=== PATIENT | male | born 1995 | race Caucasian/White ===

== ENCOUNTER 2017-11-26 10:45 | Emergency (ER) | payer BC ==
[2017-11-26 11:13] VITALS: BP 119/70; PULSE 82; RESP 18; TEMP 99.2
--- NOTE | 2017-11-26 12:30 | ED ---
URI HPI - General Chief Complaint: Upper Respiratory Infection Stated Complaint: sinus, sore throat Time Seen by Provider: 11/26/17 12:21 Source: patient, RN notes reviewed Mode of arrival: ambulatory Limitations: no limitations - History of Present Illness Initial Comments: This is a 22-year-old male who presents to the emergency department with chief complaint of cough and sinus congestion. Patient states that he was seen in an urgent care on Saturday. He states he was diagnosed with a sinus infection. He states that he has taken 5 doses of amoxicillin since that time. He states that he feels like symptoms are worsening. He reports a worsening cough. He states that he does have a sore throat and has not been eating as much because of this. He denies any fevers or chills, abdominal pain, nausea or vomiting. Denies any difficulty breathing or chest pain. - Related Data Home Medications Medication Instructions Recorded Confirmed Amoxicillin/Potassium Clav 1 tab PO Q12H 11/26/17 11/26/17 [Augmentin 875-125 Tablet] Ferrous Sulfate [Feosol] 325 mg PO DAILY 11/26/17 11/26/17 Multivitamins, Thera [Multivitamin 1 tab PO DAILY 11/26/17 11/26/17 (formulary)] Allergies Allergy/AdvReac Type Severity Reaction Status Date / Time No Known Allergies Allergy Verified 11/26/17 12:13 Review of Systems ROS Statement: Those systems with pertinent positive or pertinent negative responses have been documented in the HPI. ROS Other: All systems not noted in ROS Statement are negative. Past Medical History Past Medical History: No Reported History History of Any Multi-Drug Resistant Organisms: None Reported Additional Past Surgical History / Comment(s): rgith wrist surgery Past Psychological History: No Psychological Hx Reported Smoking Status: Never smoker Past Alcohol Use History: None Reported Past Drug Use History: None Reported General Exam - General Exam Comments Initial Comments: General: Awake and alert, well-developed; in no apparent distress. HEENT: Head atraumatic, normocephalic. Pupils are equal, round and reactive to light. Extraocular movements intact. Oropharynx moist with mild erythema. No bilateral tonsillar enlargement or exudates. Small vesicular lesions posterior soft palate. Neck: Supple. Normal ROM. No tender lymphadenopathy. Cardiovascular: Regular rate and rhythm. No murmurs, rubs or gallops. Chest symmetrical. Respiratory: Lungs clear to auscultation bilaterally. No wheezes, rales or rhonchi. Normal respiratory effort with no use of accessory muscles. Musculoskeletal: Normal ROM, no tenderness bilateral upper and lower extremities. Ambulating normally. Skin: [place], warm and dry without rashes. Neurological: Alert and oriented x3. CN II-XII grossly intact. Speech is fluent and answers are appropriate. No focal neuro deficits. Psychiatric: Normal mood and affect. No overt signs of depression or anxiety noted. Limitations: no limitations Course Vital Signs 11/26/17 11:10 Temperature 99.2 F Pulse Rate 82 Respiratory 18 Rate Blood Pressure 119/70 O2 Sat by Pulse 98 Oximetry Medical Decision Making - Medical Decision Making This is a 22-year-old male who presents to the emergency department with chief complaint of cough and sinus infection. Patient states that he was diagnosed with sinusitis on Saturday. He states he has taken 5 doses of amoxicillin and is not feeling any better. He reports a worsening cough. Chest x-ray was obtained and revealed no acute abnormalities. Patient denies any fevers or chills. Rapid strep was negative. On physical examination, lungs are clear to auscultation bilaterally. Oropharynx is mildly erythematous with vesicular like lesions on the posterior soft palate. Patient is likely suffering from a viral upper respiratory infection. However, as patient was recently diagnosed with sinusitis and has already been taking Amoxicillin he is instructed to continue taking this as prescribed. He will be provided with a prescription for an albuterol inhaler. Vital signs are stable and patient is in no acute distress. He'll be discharged home at this time. All questions answered. - Lab Data Lab Results 11/26/17 Range/Units 12:27 Group A Strep Rapid Negative (Negative) - Radiology Data Radiology results: report reviewed Chest x-ray findings: Lungs are clear and there is no pneumothorax, pleural effusion or focal pneumonia. Impression: No acute process. Disposition Clinical Impression: Upper respiratory infection Disposition: HOME SELF-CARE Condition: Good Instructions: Upper Respiratory Infection (ED) Additional Instructions: Please continue taking amoxicillin as previously prescribed. Please follow up with primary care provider within 1-2 days. Return to emergency department if symptoms should worsen or any concerns arise. Is patient prescribed a controlled substance at d/c from ED?: No Referrals: Tung Dumont MD [Primary Care Provider] - 1-2 days Time of Disposition: 13:00
--- NOTE | 2017-11-26 12:41 | XR ---
EXAMINATION TYPE: XR chest 2V DATE OF EXAM: 11/26/2017 COMPARISON: NONE TECHNIQUE: PA and lateral views submitted. HISTORY: Cough FINDINGS: The lungs are clear and there is no pneumothorax, pleural effusion, or focal pneumonia. IMPRESSION: 1. No acute process.
== END 2017-11-26 13:19 | disposition home or self-care (01) ==
LOC: EC 10:45
DX: J06.9 Acute upper respiratory infection, unspecified (principal); J32.9 Chronic sinusitis, unspecified; Z79.899 Other long term (current) drug therapy
CPT/HCPCS: 71046; 87081; 87430; 99283

== ENCOUNTER → 2021-06-29 | Outpatient (CLI) | payer MEDICAID, OTHER | END | disposition home or self-care (01) | LOC: LABWHC1 16:41 | PROVIDERS: ATTEND Emergency Medicine | DX: Z20.822 Contact with and (suspected) exposure to COVID-19 (principal) | CPT/HCPCS: 87635 ==

== ENCOUNTER → 2022-11-15 | Outpatient (CLI) | payer MEDICAID ==
--- NOTE | 2022-11-15 19:21 | XR ---
EXAMINATION TYPE: XR chest 2V DATE OF EXAM: 11/15/2022 COMPARISON: 11/26/2017 HISTORY: 27-year-old male R07.81, pleurodynia TECHNIQUE: Frontal and lateral views FINDINGS: The cardiomediastinal silhouette, aorta, and pulmonary vasculature are within normal limits. Lungs an d pleural spaces are clear. IMPRESSION: No acute cardiopulmonary process.
== END | disposition home or self-care (01) ==
LOC: RADXRMAIN 12:40
PROVIDERS: ATTEND Family Medicine
DX: R07.81 Pleurodynia (principal)
CPT/HCPCS: 71046